=== PATIENT | male | born 1955 | race African-American/Black ===

== ENCOUNTER 2017-04-04 18:25 | Emergency (ER) | payer SELFPAY ==
[~2017-04-04] VITALS: Ht 177.8 cm; Wt 95.0 kg
[2017-04-04 18:27] VITALS: BP 147/89; PULSE 98; RESP 14; TEMP 97.8; O2SAT 97
--- NOTE | 2017-04-04 18:37 | PD ---
Physical Exam Date Seen by Provider: Apr 04, 2017 Time Seen by Provider: 18:36 Narrative 61- year old male presents to the ED with headache and facial numbness for one week. He is awaiting bed placement. Data Data Last Documented VS Vital Signs Date Time Temp Pulse Resp B/P (MAP) Pulse Ox O2 Delivery O2 Flow Rate FiO2 04/04/17 18:27 97.8 98 14 147/89 (108) 97 MDM Medical Record Reviewed: Yes Supervised Visit with CANDELARIA: No Condition: Stable Romana Hayes Apr 04, 2017 18:37
[2017-04-04 20:59] VITALS: BP 149/89; PULSE 85; RESP 18; O2SAT 99
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
[2017-04-04 22:10] LABS: AUTOMATED NEUTROPHIL # 2.9 TH/MM3 (1.8-7.7); BASOPHIL % 0.4 % (0.0-2.0); EOSINOPHIL % 10.5 % (0.0-4.0); HEMATOCRIT 40.7 % (39.0-51.0); HEMO FLAGS DIFF FINAL; LYMPH % 49.3 % (9.0-44.0); LYMPHOCYTE # 4.8 TH/MM3 (1.0-4.8); MEAN CELL VOLUME 90.7 FL (80.0-100.0); MEAN CORPUSCULAR HEMOGLOBIN 30.4 PG (27.0-34.0); MEAN CORPUSCULAR HGB CONC 33.5 % (32.0-36.0); MONO % 9.4 % (0.0-8.0); NEUT % 30.4 % (16.0-70.0); PLATELET COUNT 224 TH/MM3 (150-450); RED BLOOD COUNT 4.49 MIL/MM3 (4.50-5.90); RED CELL DISTRIBUTION WIDTH 13.1 % (11.6-17.2); WHITE BLOOD COUNT 9.7 TH/MM3 (4.0-11.0)
[2017-04-04 22:11] LABS: APTT (PATIENT) 27.8 SEC (24.3-30.1); PROTHROMBIN TIME - PATIENT 10.5 SEC (9.8-11.6)
[2017-04-04 22:21] LABS: ALT (GPT) 36 U/L (12-78)
[2017-04-04 22:26] LABS: ALKALINE PHOSPHATASE 95 U/L (45-117); TOTAL BILIRUBIN ADULT 0.3 MG/DL (0.2-1.0)
[2017-04-04 22:27] LABS: ANION GAP 7 MEQ/L (5-15); AST (GOT) 27 U/L (15-37); BICARBONATE 27.1 MEQ/L (21.0-32.0); BLOOD UREA NITROGEN 15 MG/DL (7-18); CHLORIDE 105 MEQ/L (98-107); GLOMERULAR FILTRATION RATE 101 ML/MIN (>89); POTASSIUM 3.5 MEQ/L (3.5-5.1); SODIUM (NA) 139 MEQ/L (136-145)
--- NOTE | 2017-04-04 22:42 | RADRPT ---
EXAM DATE/TIME: 04/04/2017 22:15 [facility] COMPARISON: No previous studies available for comparison. INDICATIONS : Headache. RADIATION DOSE: 39.15 CTDIvol (mGy) MEDICAL HISTORY : None SURGICAL HISTORY : None. ENCOUNTER: Initial ACUITY: 1 day PAIN SCALE: 6/10 LOCATION: cranial TECHNIQUE: Multiple contiguous axial images were obtained of the head. Using automated exposure control and adj ustment of the mA and/or kV according to patient size, radiation dose was kept as low as reasonably a chievable to obtain optimal diagnostic quality images. DICOM format image data is available electro nically for review and comparison. FINDINGS: CEREBRUM: The ventricles are normal for age. No evidence of midline shift, mass lesion, hemorrhage or acute in farction. No extra-axial fluid collections are seen. POSTERIOR FOSSA: The cerebellum and brainstem are intact. The 4th ventricle is midline. The cerebellopontine angle i s unremarkable. EXTRACRANIAL: Chronic appearing, primarily right-sided sinusitis noted. I believe radius nasoantral window surgery. There is complete opacification of the visualized right maxillary air cell extending into the ethmoi d and frontal sinuses and also into the nasal cavity. A mass is not entirely excludable. I don't conv incingly see acute bony destruction. SKULL: The calvaria is intact. No evidence of skull fracture. CONCLUSION: Severe right-sided paranasal sinusitis as above. No acute intracranial abnormality. Giovanni Armenta MD on April 04, 2017 at 22:38 Board Certified Radiologist. This report was verified electronically.
[2017-04-04] MEDS ORDERED: ACETAMINOPHEN/HYDROcodone 325 MG/5 MG TAB PO ONE (23:00)
[2017-04-04 23:01] VITALS: BP 121/58; PULSE 80; RESP 16; O2SAT 100
[2017-04-04] MEDS ORDERED: IBUP-1129 PO (23:08)
[2017-04-04] MEDS ORDERED: AUGM875T3 PO (23:08)
[2017-04-04] MEDS ORDERED: CLAR5TAB9 PO (23:08)
== END 2017-04-04 23:32 | disposition home or self-care (01) ==
LOC: NEPE 18:25
DX: R51 Headache (principal); J32.9 Chronic sinusitis, unspecified; R20.9 Unspecified disturbances of skin sensation
CPT/HCPCS: 70450; 80053; 85025; 85610; 85652; 85730; 86140; 99284